=== PATIENT | female | born 1935 | race Caucasian/White ===

== ENCOUNTER 2023-02-08 11:12 | Emergency (ER) | payer MEDICARE ==
[2023-02-08] MEDS ORDERED: Lidocaine 1% 5 ML VIAL INJECT ONE (15:07)
[2023-02-08] MEDS ORDERED: Bacitracin Oint 1 GM U/D Packet TOP ONE (15:46)
== END 2023-02-08 16:04 | disposition home or self-care (01) ==
LOC: JP.ED 11:12
DX: S70.362A Insect bite (nonvenomous), left thigh, initial encounter (principal); S20.161A Insect bite (nonvenomous) of breast, right breast, initial encounter; E11.9 Type 2 diabetes mellitus without complications; Z79.84 Long term (current) use of oral hypoglycemic drugs; Z88.0 Allergy status to penicillin; W57.XXXA Bitten or stung by nonvenomous insect and other nonvenomous arthropods, initial encounter
CPT/HCPCS: 99281